=== PATIENT | female | born 1965 | race Caucasian/White ===

== ENCOUNTER 2017-11-17 21:24 | Emergency (ER) | payer BC ==
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
--- NOTE | 2017-11-18 12:05 | CR ---
Left hand: Four views of the left hand were obtained. Comparison: No previous study. Joint spaces are fairly well preserved. No fracture, dislocation or other bony abnormality is seen. Impression: 1. No bony abnormality is identified on left hand study. Diagnostic code #1
== END 2017-11-17 22:55 | disposition home or self-care (01) ==
LOC: JD.ED 21:24
DX: S60.222A Contusion of left hand, initial encounter (principal); W23.1XXA Caught, crushed, jammed, or pinched between stationary objects, initial encounter; Y92.009 Unspecified place in unspecified non-institutional (private) residence as the place of occurrence of the external cause
CPT/HCPCS: 73130-26-LT; 73130-LT; 99283

== ENCOUNTER 2018-01-09 15:27 | Emergency (ER) | payer BC ==
[2018-01-09] MEDS ORDERED: Sodium Chloride 0.9% 1,000 ML IV ONE (17:32)
[2018-01-09] MEDS ORDERED: Ondansetron 4 MG/2 ML SDV IVPUSH ONE (17:33)
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
== END 2018-01-09 18:55 | disposition left against medical advice (07) ==
LOC: JD.ED 15:27
DX: R11.0 Nausea (principal); R42 Dizziness and giddiness; Z79.899 Other long term (current) drug therapy
CPT/HCPCS: 87804; 99282; 99284-25